=== PATIENT | female | born 1985 | race Caucasian/White ===

== ENCOUNTER 2019-04-14 06:15 | Inpatient (IN) | payer OTHER ==
[~2019-04-14 06:15] MED LIST: ELECTROLYTE-148 SOLN 500 ML IV ONE
[2019-04-14] MEDS ORDERED: ELECTROLYTE-148 SOLN 1,000 ML IV SCH ×2 (06:45→07:45)
[2019-04-14 07:39] VITALS: BMI 27.6
[2019-04-14] MEDS ORDERED: ELECTROLYTE-148 SOLN 500 ML IV ONE (07:45)
[2019-04-14] MEDS ORDERED: CITRIC ACID/SODIUM CITRATE 30 ML UNIT-DOSE CUP PO ONE ×2 (07:45→08:00)
--- NOTE | 2019-04-14 08:03 | HP ---
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: Alzheimer's, CVA, Dementia, Migraine, Multiple Sclerosis, Peripheral Neuropathy, Parkinson's, Seizure, Syncope, TIA, Vertigo, Other Cardiovascular: No: AFIB, Aneurysm, Aortic Insufficiency, Aortic Stenosis, CAD, CHF, Deep Vein Thrombosis, HTN, Hyperlipdemia, LA, Mitral Insufficiency, Mitral Stenosis, Murmur, Pulmonary Hypertension, Other Pulmonary: No: Asthma, Bronchitis, Cancer, COPD, O2 Dependent, Pneumonia, Previously Intubated, Pulmonary Embolus, Pulmonary Fibrosis, Sleep Apnea, Other Gastrointestinal: No: Ascites, Cancer, Constipation, Crohn's Disease, Diverticulitis, Diverticulosis, Esophageal Varices, Gastritis, GERD, GI Bleed, Hemorrhoids, Hiatal Hernia, Inflamatory Bowel Disease, Irritable Bowel Disease, Pancreatitis, Peptic Ulcer Disease, Ulcerative Colitis, Other Hepatobiliary: No: Cirrhosis, Cholelithiasis, Cholecystitis, Choledocholithiasis , Hepatitis A, Hepatitis B, Hepatitis C, Other Renal/: No: Renal Failure, Renal Inusuff, BPH, Cancer, Hematuria, Hemodialysis , Neurogenic Bladder, Renal Calculi, UTI, Other Reproductive: No: Ectopic , Endometriosis, Fibroids, PID, Polycystic Ovary Syndrome, Postmenopausal, Other ...: 4 ...Para: 2 ...Term: 2 ...: 0 ...Spon : 0 ...Induced : 1 ...Multiple Gestation: 0 ...LMP: 07/28/18 ... Weeks Gestation by Dates: 38.1 ...EDC by Dates: 05/04/19 Heme/Onc: No: Anemia, B12 Deficiency, Bleeding Disorder, Cancer, Current Chemotherapy, Current Radiation Therapy, Hemochromatosis, Hypercoaguable State, Myeloproliferative Synd, Sickle Cell Disease, Sickle Cell Trait, Thrombocytopenia, Other Infectious Disease: No: AIDS, C-Diff, Herpes Zoster, HIV, MRSA, STD's, Tuberculosis, VREF, Other Psych: No: Addictions, Anxiety, Bipolar, Depression, Panic, Psychosis, Schizophrenia, Other Musculoskeletal: No: Bursitis, Chronic low back pain, Hemiparesis, Hemiplegia, Osteoarthritis, Paraplegia, Other Rheumatology: No: Fibromyalgia, Gout, Lupus, Rheumatoid Arthritis, Sarcoidosis, Vasculitis, Other ENT: No: Allergic Rhinitis, Sinusitis, Other Dermatology: No: Basal Cell, Cellulitis, Eczema, Melanoma, Psoriasis, Squamous Cell, Other - Past Surgical History Past Surgical History: Yes: (x 2) Hx Myomectomy: No Hx Transabdominal Cerclage: No - Smoking History Smoking history: Never smoked Have you smoked in the past 12 months: No Aproximately how many cigarettes per day: 0 - Alcohol/Substance Use Hx Alcohol Use: No History of Substance Use: reports: None Home Medications - Allergies Allergies/Adverse Reactions: Allergies Allergy/AdvReac Type Severity Reaction Status Date / Time No Known Allergies Allergy Verified 03/07/19 17:44 - Home Medications Home Medications: Ambulatory Orders Labetalol HCl 200 mg PO BID 11/08/12 Pnv No.95/Ferrous Fum/Folic AC [ Tablet] 1 each PO DAILY 11/08/12 Aspirin [ASA -] 81 mg PO DAILY 03/07/19 Nifedipine ER [Procardia Xl -] 30 mg PO DAILY 03/07/19 Family Medical History Family History: Unable to Obtain Review of Systems - Review of Systems Constitutional: denies: No Symptoms, Chills, Diaphoresis, Fever, Lethargy, Loss of Appetite, Malaise, Night Sweats, Unintentional Wgt. Loss, Weakness, Other Eyes: denies: No Symptoms, Blind Spots, Blurred Vision, Double Vision, Eye Pain , Floaters, Photophobia, Recent Change in Vision, Other HENT: denies: No Symptoms, Difficult Swallowing, Ear Discharge, Ear Pain, Epistaxis, Gingival Bleeding, Hearing Loss, Mouth Swelling, Nasal Congestion, Ocular Prosthesis, Throat Pain, Toothache, Ringing in Ears, Other Neck: denies: No Symptoms, Decreased ROM, Lumps, Pain on Movement, Stiffness, Swollen Glands, Tenderness, Other Cardiovascular: denies: No Symptoms, Chest Pain, Edema, Palpitations, Shortness of Breath, Other Respiratory: denies: No Symptoms, Cough, Exercise Intolerance, Hemoptysis, Orthopnea, PND, Snoring, SOB, SOB on Exertion, Wheezing, Other Gastrointestinal: denies: No Symptoms, Abdominal Pain, Bloating, Constipation, Diarrhea, Dysphagia, Indigestion, Melena, Nausea, Rectal Bleeding, Vomiting, Vomiting Blood, Other Genitourinary: denies: No Symptoms, Burning, Discharge, Dysuria, Flank Pain, Frequency, Hematuria, Incontinence, Lesions, Menses, Pain, Testicular Mass, Testicular Pain, Testicular Swelling, Urgency, Vaginal Bleeding, Other Breasts: denies: No Symptoms Reported, See HPI, Breast Implants, Discharge from Nipple, Lumps, Pain, Skin Changes, Other Musculoskeletal: denies: No Symptoms, Back Pain, Crepitus, Decreased ROM, Extremity Pain, Joint Pain, Joint Swelling, Muscle Pain, Muscle Cramps, Muscle Weakness, Other Integumentary: denies: No Symptoms, Blister, Bruising, Change in Color, Eczema, Erythema, Incision, Lesions, Lump, Pallor, Pruritis, Rash, Wound, Other Neurological: denies: No Symptoms, Change in LOC, Change in Speech, Confusion, Dizziness, Headache, Incoordination, Numbness, Parasthesia, Pre-Existing Deficit , Seizure, Syncope, Tremors, Unsteady Gait, Weakness, Other Endocrine: denies: No Symptoms, Excessive Sweating, Flushing, Increased Hunger, Increased Thirst, Intolerance to Cold, Intolerance to Heat, Unexplained Weight Gain, Unexplained Weight Loss, Other Hematology/Lymphatic: denies: No Symptoms, Easily Bruised, Excessive Bleeding, Swollen Glands, Other Psychiatric: denies: No Symptoms, Altered Sleep Pattern, Anxiety, Depression, Hallucinations, Panic, Paranoia, Suicidal, Other Physical Exam - Maternity Vital Signs: Vital Signs Temperature 98.5 F 04/14/19 06:15 Pulse Rate 88 04/14/19 06:15 Respiratory Rate 20 04/14/19 06:15 Blood Pressure 121/86 04/14/19 06:15 O2 Sat by Pulse Oximetry (%) Constitutional: Yes: No Distress HENT: Yes: Atraumatic Cardiovascular: Yes: Regular Rate and Rhythm Breast(s): Yes: Other (deferred) - Abdominal Exam/OB Number of Fetuses: Single Presentation: Vertex Contractions: No Regularity: Irritability Monitor Mode: External Heart Rate (range): 130 Category: I Accelerations: None Decelerations: None - Vaginal Exam/OB Vaginal Bleediing: No Speculum Exam: No - Physical Exam Musculoskeletal: Yes: WNL Extremities: Yes: WNL Edema: Yes Edema: LLE: Trace, RLE: Trace Integumentary: Yes: WNL ...Motor Strength: WNL Psychiatric: Yes: Alert, Oriented - Labs Lab Results: reviewed Imaging - Results Ultrasound: Report Reviewed Assessment/Plan 34 y/o P2 @ 37.1wks, CHTN on multiple antihypertensive and BP difficult to control, GDM and FS well controlled, FHT is reassuring, previous CD x 2 and scheduled repeat. BTL unable to be performed due to consent not previously signed. Patient counseled regarding risks and complications of surgery including delivery at early term. -Proceed with surgery
[2019-04-14] MEDS ORDERED: morphine SULFATE/PF 0.5 MG/ML (2cc Syringe - QUVA) ONE (08:36)
[2019-04-14] MEDS ORDERED: ePHEDrine SULFATE 50 MG/1 ML AMPULE ONE (08:53)
[2019-04-14] MEDS ORDERED: ONDANSETRON 4 MG/2 ML VIAL IVPUSH PRN (09:15)
--- NOTE | 2019-04-14 09:51 | OP ---
Operative Note - Note: Operative Date: 04/14/19 (Dic# [id number]) Pre-Operative Diagnosis: 37.1wks, CHTN poorly controlled on multiple antihypertensive, A1GDM, prior CD x 2 Operation: RCD Findings: see dictation Post-Operative Diagnosis: Same as Pre-op Surgeon: Derrick Jacobs Hoisting Engineer: Chaka Pitts Anesthesia: Spinal Specimens Removed: placenta Estimated Blood Loss (mls): 800 Fluid Volume Replaced (mls): 1,400 Operative Report Dictated: Yes
[2019-04-14] MEDS ORDERED: OXYTOCIN 20 UNITS in 0.9% NS 20 UNIT/1,000 ML INFUS.BAG IV ONE (10:21)
[2019-04-14] MEDS: OXYTOCIN 20 UNITS in 0.9% NS 20 UNIT/1,000 ML INFUS.BAG IV SCH ×2 (10:24→18:00)
[2019-04-14] MEDS ORDERED: IBUPROFEN 800 MG/8 ML IJ IVPB ONE (10:50)
[2019-04-14] MEDS: IBUPROFEN 800 MG/8 ML IJ IVPB PRN ×2 (10:55→22:10)
--- NOTE | 2019-04-14 16:32 | OP ---
DATE OF OPERATION: 04/14/2019 PREOPERATIVE DIAGNOSIS: This is a 34-year-old para 2 at 37 and 1 weeks of gestation, chronic hypertensive with difficulty controlling on multiple antihypertensives, gestational diabetic, prior section x2. POSTOPERATIVE DIAGNOSIS: This is a 34-year-old para 2 at 37 and 1 weeks of gestation, chronic hypertensive with difficulty controlling on multiple antihypertensives, gestational diabetic, prior section x2. PROCEDURE: Repeat low transverse section. SURGEON: Griffin Gunter MD LEAD GENERATION REPRESENTATIVE: CRIS Melo COMPLICATIONS: None. ESTIMATED BLOOD LOSS: For the procedure is 800 mL. INTRAVENOUS FLUIDS: 1400 mL of fluids. URINE: Clear. FINDINGS: Lower abdomen scar consistent with prior section. Moderate amount of subcutaneous adipose tissue. Fascia was thick and adherent to the underlying rectus muscles, and rectus muscles were fused to each other in the midline. No parietal peritoneal visceral adhesions. Bladder was adherent to the lower uterine segment. Bladder dome, rectus muscle fascial interface at the conclusion of the procedure was noted to be dry. DESCRIPTION OF PROCEDURE: The patient was taken to the operating room where anesthesia was found to be adequate. She was then prepped and draped in a normal sterile fashion and then a Palma catheter was placed atraumatically. Appropriate time-out took place. Pfannenstiel skin incision was made with a scalpel and carried to underlying fascia with the Bovie. The fascia was incised in the midline and the incision extended laterally with sharp dissection. The underlying rectus muscles were dissected off sharply. Rectus muscles were elevated in the midline and sharp dissection superiorly. Incidental entry to the peritoneal cavity revealed no visceral adhesions at the point of entry. The incision was extended superiorly and inferiorly without difficulty. Bladder blade was placed in the lower uterine segment as noted above slightly effaced. Transverse lower uterine segment incision with the scalpel was made 5 cm above the vesicouterine junction and incision extended laterally with blunt dissection. Clear amniotomy. The infant was delivered through the surgical incision with mild fundal pressure. No nuchal cord. Cord was clamped and cut. Samples for gases and blood were obtained after delay. The infant was handed off to the waiting NICU staff. The placenta was delivered manually and intact. The uterus was exteriorized through the surgical incision, and the intrauterine cavity was cleared of all clots and debris. The lower uterine segment incision was reapproximated with 1-0 Polysorb in running, locked fashion. Excellent reapproximation. Three [id number] stitches with 2-0 chromic were required to neutralize mild oozing from the incision. Excellent hemostasis after this. The uterus was internalized to the pelvic cavity, and gutters were cleared of all clot and debris. Fundus and bilateral tubes and ovaries consistent with normal anatomy. Lower uterine segment incision again hemostatically stable. The fascial incision was reapproximated with 0 Polysorb running, nonlocked suture. Excellent structural reapproximation achieved and confirmed by digital palpation by the surgeon. Subcutaneous tissues were copiously irrigated and bleeders neutralized with Bovie cautery. The skin incision was reapproximated with surgical mora. Excellent hemostasis at the conclusion of the procedure and patient in stable condition. Instrument count was reported as correct x2 by the staff. GRIFFIN GUNTER MD [id number] MTDD
[2019-04-15] MEDS: SIMETHICONE 80 MG TAB.CHEW (FP) PO PRN ×3 (06:09→16:37)
[2019-04-15] MEDS: IBUPROFEN 600 MG TABLET (FP) PO PRN ×3 (06:09→16:37)
[2019-04-15] MEDS: oxyCODONE HCL 5 MG TABLET PO PRN ×3 (06:12→16:36)
[2019-04-15] MEDS ORDERED: NIFEdipine E.R. 30 MG TABLET PO SCH (07:00)
--- NOTE | 2019-04-15 08:01 | PN ---
Post Progress Note - Subjective Subjective: ambulating, breast feeding, lochia decreased, tolerating PO, voiding Post Day: 1 Type of Delivery: Repeat C/S Vital Signs: Vital Signs Temperature 98.2 F 04/15/19 06:00 Pulse Rate 83 04/15/19 06:00 Respiratory Rate 18 04/15/19 06:00 Blood Pressure 118/68 04/15/19 06:00 O2 Sat by Pulse Oximetry (%) 100 04/14/19 10:45 Breast Exam: Yes: Other (deferred) Uterus: Yes: Fundus Firm Incision: Yes: Dressing dry and intact, Refugio intact Abdomen/GI: Yes: Abdomen soft Lochia, amount: Moderate Extremities: Yes: Calves non-tender Activity: Ambulating Assessment/Plan POD # 1 in stable condition, dressing removed and PP/post-op precautions discussed. PAtient desires circumcision. -COntinue PP care -F/U AM CBC
--- NOTE | 2019-04-15 08:09 | PN ---
Progress Note (short form) - Note Progress Note: 34F s/p repeat C/S under duramorph spinal. Vital Signs Temp 98.2 F 04/15/19 06:00 Pulse 83 04/15/19 06:00 Resp 18 04/15/19 06:00 BP 118/68 04/15/19 06:00 Pulse Ox 100 04/14/19 10:45 Intake & Output 04/14/19 04/14/19 04/15/19 11:59 23:59 11:59 Intake Total 1900 900 0 Output Total 1450 1250 700 Balance 450 -350 -700 Weight 156 lb Intake: IV 1900 900 NORMAL SALINE+20 UNITS 900 900 OXYTOCIN - 20 unit In 1, 000 ml @ 125 mls/hr IV ASDIR MAYCOL Rx#:[id number] Plasma-Lyte 148 - 1,000 500 ml @ 125 mls/hr IV ASDIR MAYCOL Rx#:[id number] Plasma-Lyte 148 - 500 ml 500 @ 1000 mls/hr IV ONCE ONE Rx#:[id number] Oral 0 0 Output: Urine 1450 1250 700 Palma 1450 1250 300 Void 400 Other: Voiding Method Indwelling Catheter Toilet Height 5 ft 3 in Body Mass Index (BMI) 27.6 Weight 5 lb 15 oz Length 18.5 in - No anesthesia complications
[2019-04-15] MEDS ORDERED: FLU VACCINE QUAD 60 MCG/0.5 ML (MDV 19-20) IM ONE (10:00)
[2019-04-15] MEDS ORDERED: FLU VACC QS2019-20(6MOS UP)/PF 60 MCG/0.5 ML SYRINGE IM ONE (10:00)
[2019-04-15] MEDS ORDERED: DIPHTH,PERTUSS(ACELL),TET 0.5 ML DISP.SYRIN IM ONE (10:00)
[2019-04-15 11:50] LABS: BASO % 0.1 % (0-2.0); EOS % 0.5 % (0-4.5); HEMATOCRIT 35.2 % (32.4-45.2); HEMOGLOBIN 12.2 GM/dL (10.7-15.3); LYMPH % 7.8 % (8-40); MCH 34.5 pg (25.7-33.7); MCHC 34.7 g/dl (32.0-36.0); MEAN CELL VOLUME 99.3 fl (80-96); MEAN PLT VOLUME 8.7 fl (7.5-11.1); MONO % 6.4 % (3.8-10.2); NEUT % 85.2 % (42.8-82.8); PLATELET COUNT 203 K/MM3 (134-434); RBC 3.54 M/mm3 (3.60-5.2); RDW 13.5 % (11.6-15.6); WHITE BLOOD COUNT 10.9 K/mm3 (4.0-10.0)
[2019-04-16] MEDS: IBUPROFEN 600 MG TABLET (FP) PO PRN ×3 (02:06→14:41)
[2019-04-16] MEDS: SIMETHICONE 80 MG TAB.CHEW (FP) PO PRN ×3 (02:06→14:40)
[2019-04-16] MEDS: oxyCODONE HCL 5 MG TABLET PO PRN ×3 (02:07→14:40)
[2019-04-16] MEDS: BISACODYL 10 MG SUPP.RECT RC PRN ×2 (02:50→08:20)
--- NOTE | 2019-04-16 08:02 | PN ---
Post Progress Note - Subjective Subjective: c/o gaseous discomfort pain scale 8/10 pt attempted suppository FL herself, it fell down Post Day: 2 Type of Delivery: Repeat C/S Vital Signs: Vital Signs Temperature 97.8 F 04/15/19 20:44 Pulse Rate 86 04/15/19 20:44 Respiratory Rate 20 04/15/19 20:44 Blood Pressure 136/85 04/15/19 20:44 O2 Sat by Pulse Oximetry (%) 100 04/14/19 10:45 Breast Exam: Yes: Soft, Other (NOT BF ). No: Engorged Uterus: Yes: Fundus Firm, Fundus below umbilicus, Non-tender Incision: Yes: Refugio intact. No: Redness, Oozing, Other Abdomen/GI: Yes: Abdomen soft, Abdominal Distention (mild , bS active ), Passing flatus, Tolerating PO (diet ) Lochia: Yes: Rubra Lochia, amount: Moderate Extremities: Yes: Calves non-tender Perineum: Yes: Intact Activity: Ambulating - Labs Labs: CBC WBC 10.9 K/mm3 (4.0-10.0) H 04/15/19 11:00 RBC 3.54 M/mm3 (3.60-5.2) L 04/15/19 11:00 Hgb 12.2 GM/dL (10.7-15.3) 04/15/19 11:00 Hct 35.2 % (32.4-45.2) 04/15/19 11:00 MCV 99.3 fl (80-96) H 04/15/19 11:00 MCH 34.5 pg (25.7-33.7) H 04/15/19 11:00 MCHC 34.7 g/dl (32.0-36.0) 04/15/19 11:00 RDW 13.5 % (11.6-15.6) 04/15/19 11:00 Plt Count 203 K/MM3 (134-434) 04/15/19 11:00 MPV 8.7 fl (7.5-11.1) 04/15/19 11:00 Absolute Neuts (auto) 9.2 K/mm3 (1.5-8.0) H 04/15/19 11:00 Neutrophils % 85.2 % (42.8-82.8) H D 04/15/19 11:00 Lymphocytes % 7.8 % (8-40) L D 04/15/19 11:00 Monocytes % 6.4 % (3.8-10.2) 04/15/19 11:00 Eosinophils % 0.5 % (0-4.5) 04/15/19 11:00 Basophils % 0.1 % (0-2.0) 04/15/19 11:00 Nucleated RBC % 0 % (0-0) 04/15/19 11:00 Problem List - Problems (1) Status post section routine follow-up Code(s): Z39.2 - ENCOUNTER FOR ROUTINE FOLLOW-UP; Z98.891 - HISTORY OF UTERINE SCAR FROM PREVIOUS SURGERY Assessment/Plan stable plan rectal suppository ambulate po fluids requests discharge tomorrow.
[2019-04-16] MEDS ORDERED: oxyCODONE HCL 5 MG TABLET PO PRN (10:12)
[2019-04-16] MEDS ORDERED: ONDANSETRON *ODT* 4 MG TABLET SL PRN (10:14)
--- NOTE | 2019-04-16 10:29 | PN ---
Progress Note (short form) - Note Progress Note: Patient counseled regarding circumcision and after all questions and concerns were discussed, she declined it at this time.
--- NOTE | 2019-04-16 14:50 | PATH ---
Surgical Pathology Report Patient Name: KENJI FERNANDO [facility]. Rec. 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 TRIVASCULAR CORD. MEMBRANES WITH NO DIAGNOSTIC ABNORMALITIES. Electronically Signed Lana Chapin M.D. Gross Description The specimen is received fresh labeled placenta and is a 266 gram, 14.0 x 13.0 x 2.2 cm. placenta with attached membranes and umbilical cord. The attached membranes are bates, translucent and focal opacities and insert marginally. The umbilical cord measures 8 cm. in length and averages 1.2 cm. in diameter. The cord inserts eccentrically, 3 cm. to the nearest margin. No true knots or strictures are identified. Cut surface of the umbilical cord reveals 3 vessels. The surface is bennett-blue with minimal fibrin deposition and appropriate caliber vessels. The maternal surface is red-brown and intact. Sectioning reveals red-brown, spongy parenchyma. No lesions are identified. Maintenance Instructor sections are submitted in three cassettes as follows: 1- membrane rolls and umbilical cord; 2-3- full thickness sections of placenta. /04/15/2019 saudi/04/15/2019
[2019-04-17] MEDS: IBUPROFEN 600 MG TABLET (FP) PO PRN ×2 (00:13→09:42)
[2019-04-17] MEDS: oxyCODONE HCL 5 MG TABLET PO PRN (00:14)
[2019-04-17] MEDS: SIMETHICONE 80 MG TAB.CHEW (FP) PO PRN ×2 (00:14→09:42)
--- NOTE | 2019-04-17 09:17 | DS ---
Physical Examination Vital Signs: Vital Signs Temperature 97 F L 04/16/19 20:52 Pulse Rate 84 04/16/19 20:52 Respiratory Rate 20 04/16/19 20:52 Blood Pressure 121/82 04/16/19 20:52 O2 Sat by Pulse Oximetry (%) 100 04/14/19 10:45 Constitutional: Yes: Well Nourished, No Distress, Calm Eyes: Yes: WNL, Conjunctiva Clear, EOM Intact HENT: Yes: WNL, Atraumatic, Normocephalic Neck: Yes: WNL, Supple, Trachea Midline Cardiovascular: Yes: WNL, Regular Rate and Rhythm Respiratory: Yes: WNL, Regular, CTA Bilaterally Gastrointestinal: Yes: WNL, Normal Bowel Sounds Musculoskeletal: Yes: WNL Extremities: Yes: WNL Edema: No Integumentary: Yes: WNL Neurological: Yes: WNL, Alert, Oriented ...Motor Strength: WNL Psychiatric: Yes: WNL Labs: CBC, BMP 04/15/19 11:00 Discharge Summary Problems reviewed: Yes Reason For Visit: ADMIT Current Active Problems Status post section routine follow-up (Acute) Procedures: Principal: [facility] Hospital Course: Patient presented for a repeat She had an uncomplicated procedure She met all milestones She was discharged home on POD#3 Condition: Stable - Instructions Diet, Activity, Other Instructions: Please return to regular diet as tolerated. Please follow activity instructions as per provider. Take medications as prescribed and follow up within a week at the health center. Call MD with any questions or concerns. Referrals: Derrick Jacobs MD [Staff Physician] - Disposition: HOME - Home Medications Comprehensive Discharge Medication List: Ambulatory Orders Labetalol HCl 200 mg PO BID 11/08/12 Pnv No.95/Ferrous Fum/Folic AC [ Tablet] 1 each PO DAILY 11/08/12 Aspirin [ASA -] 81 mg PO DAILY 03/07/19 Nifedipine ER [Procardia Xl -] 30 mg PO DAILY 03/07/19 Acetaminophen [Tylenol] 650 mg PO Q6H PRN #30 capsule MDD 5 04/14/19 Ibuprofen 600 mg PO Q6H PRN #30 tablet 04/14/19 Oxycodone HCl 5 mg PO Q6H PRN 3 Days #12 tablet MDD 5 04/14/19
[2019-04-17 09:34] VITALS: BP 132/89; PULSE 76; TEMP 97.9
[2019-04-17 10:51] LABS: BASO % 0.2 % (0-2.0); EOS % 3.4 % (0-4.5); HEMATOCRIT 37.2 % (32.4-45.2); HEMOGLOBIN 12.8 GM/dL (10.7-15.3); LYMPH % 17.6 % (8-40); MCH 34.5 pg (25.7-33.7); MCHC 34.5 g/dl (32.0-36.0); MEAN CELL VOLUME 99.8 fl (80-96); MEAN PLT VOLUME 8.4 fl (7.5-11.1); MONO % 7.4 % (3.8-10.2); NEUT % 71.4 % (42.8-82.8); PLATELET COUNT 263 K/MM3 (134-434); RBC 3.73 M/mm3 (3.60-5.2); RDW 13.1 % (11.6-15.6)
== END 2019-04-17 12:25 | disposition home or self-care (01) | DRG 540 ==
LOC: JLDR 06:15 → J3W 11:17
PROVIDERS: ADMIT Student in an Organized Health Care Education/Training Program; ATTEND Student in an Organized Health Care Education/Training Program
PROC: 10D00Z1 Extraction of Products of Conception, Low, Open Approach (ICD-10-PCS; principal; 2019-04-14)
DX: O10.92 Unspecified pre-existing hypertension complicating childbirth (principal); O24.429 Gestational diabetes mellitus in childbirth, unspecified control; O34.219 Maternal care for unspecified type scar from previous cesarean delivery; Z3A.35 35 weeks gestation of pregnancy; Z37.0 Single live birth
CPT/HCPCS: 36415; 36600; 82803; 85025; 88307-TC; Q0162

== ENCOUNTER 2021-05-29 13:43 | Emergency (ER) | payer OTHER ==
[2021-05-29 13:57] VITALS: BP 154/84; TEMP 98; BMI 26.4
[2021-05-29 14:58] VITALS: PULSE 89
== END 2021-05-29 14:58 | disposition home or self-care (01) ==
LOC: JERFT 13:43 → JER 13:43 → JERFT 14:58
DX: H43.393 Other vitreous opacities, bilateral (principal); F41.9 Anxiety disorder, unspecified
CPT/HCPCS: 82962; 99283-25

== ENCOUNTER 2022-07-02 19:26 | Emergency (ER) | payer OTHER ==
[2022-07-02 19:32] VITALS: BP 157/93; PULSE 92; RESP 18; TEMP 98.1; BMI 25.4
[2022-07-02] MEDS ORDERED: SODIUM CHLORIDE 0.9% 500 ML INFUS.BAG IV ONE (19:43)
[2022-07-02] MEDS ORDERED: ACETAMINOPHEN 1000 MG/100 ML BAG IVPB ONE (19:43)
[2022-07-02] MEDS ORDERED: ACETAMINOPHEN INJECTION 100 ML IVPB ONE (20:16)
[2022-07-02] MEDS ORDERED: METOCLOPRAMIDE HCL INJECTION 10 MG/2 ML VIAL IVPUSH ONE (20:19)
[2022-07-02] MEDS ORDERED: KETOROLAC TROMETHAMINE 30 MG/1 ML VIAL IVPUSH ONE (20:19)
[2022-07-02] MEDS ORDERED: KETOROLAC TROMETHAMINE 30 MG/1 ML VIAL ONE (20:40)
[2022-07-02] MEDS ORDERED: METOCLOPRAMIDE HCL INJECTION 10 MG/2 ML VIAL ONE (20:40)
[2022-07-02 20:44] LABS: BASO % 0.2 % (0-2.0); EOS % 0.9 % (0-4.5); HEMATOCRIT 39.7 % (32.4-45.2); HEMOGLOBIN 13.9 GM/dL (10.7-15.3); LYMPH % 32.8 % (8-40); MCH 32.4 pg (25.7-33.7); MEAN CELL VOLUME 92.7 fl (80-96); MEAN PLT VOLUME 8.2 fl (7.5-11.1); MONO % 7.4 % (3.8-10.2); NEUT % 58.7 % (42.8-82.8); PLATELET COUNT 389 10^3/uL (134-434); RBC 4.29 M/mm3 (3.60-5.2); RDW 13.1 % (11.6-15.6); WHITE BLOOD COUNT 10.9 K/mm3 (4.0-10.0)
[2022-07-02 21:01] LABS: CALCIUM 9.3 mg/dL (8.5-10.1)
[2022-07-02 21:02] LABS: BLOOD UREA NITROGEN 16.2 mg/dL (7-18)
[2022-07-02 21:05] LABS: CREATININE 0.5 mg/dL (0.55-1.3)
== END 2022-07-02 22:57 | disposition home or self-care (01) ==
LOC: JER 19:26
PROC: 3E033NZ Introduction of Analgesics, Hypnotics, Sedatives into Peripheral Vein, Percutaneous Approach (ICD-10-PCS; principal; 2022-07-02)
PROC: 3E033GC Introduction of Other Therapeutic Substance into Peripheral Vein, Percutaneous Approach (ICD-10-PCS; 2022-07-02)
PROC: 3E033GC Introduction of Other Therapeutic Substance into Peripheral Vein, Percutaneous Approach (ICD-10-PCS; 2022-07-02)
DX: G43.109 Migraine with aura, not intractable, without status migrainosus (principal); R11.0 Nausea
CPT/HCPCS: 36415; 80048; 85025; 99284-25

== ENCOUNTER 2023-10-27 13:11 | Emergency (ER) | payer OTHER ==
[2023-10-27 13:17] VITALS: BP 143/82; PULSE 83; RESP 18; TEMP 97.8; BMI 26.5
[2023-10-27 15:02] LABS: BASO % 0.4 % (0-2.0); HEMATOCRIT 44.2 % (32.4-45.2); HEMOGLOBIN 15.2 GM/dL (10.7-15.3); LYMPH % 23.4 % (8-40); MCH 32.8 pg (25.7-33.7); MCHC 34.5 g/dl (32.0-36.0); MEAN CELL VOLUME 95.1 fl (80-96); MEAN PLT VOLUME 8.4 fl (7.5-11.1); MONO % 6.8 % (3.8-10.2); NEUT % 68.4 % (42.8-82.8); PLATELET COUNT 365 10^3/uL (134-434); RBC 4.65 M/mm3 (3.60-5.2); RDW 12.8 % (11.6-15.6); WHITE BLOOD COUNT 8.9 K/mm3 (4.0-10.0)
[2023-10-27] MEDS: SODIUM CHLORIDE 0.9% 500 ML INFUS.BAG IV ONE (15:16)
[2023-10-27 15:21] LABS: POTASSIUM 4.2 mmol/L (3.5-5.1)
[2023-10-27 15:23] LABS: CALCIUM 9.4 mg/dL (8.5-10.1)
[2023-10-27 15:24] LABS: BLOOD UREA NITROGEN 14.4 mg/dL (7-18)
[2023-10-27 15:27] LABS: CREATININE 0.6 mg/dL (0.55-1.3)
[2023-10-27 15:28] LABS: BILIRUBIN,TOTAL 0.5 mg/dL (0.2-1); TOT PROT 7.6 g/dl (6.4-8.2)
[2023-10-27 15:38] LABS: ACTIVATED PTT 29.8 SECONDS (25.2-36.5); INR 1.08 (0.83-1.09); PROTHROMBIN TIME (PATIENT) 12.4 SEC (9.7-13.0)
[2023-10-27 16:18] LABS: HIV INTERPRETATION NEGATIVE (NEGATIVE)
== END 2023-10-27 16:16 | disposition home or self-care (01) ==
LOC: JER 13:11
DX: R42 Dizziness and giddiness (principal); E86.0 Dehydration; Z20.822 Contact with and (suspected) exposure to COVID-19
CPT/HCPCS: 0241U-QW; 36415; 80053; 82550; 84484; 85025; 85610; 85730; 86803; 87389; 93005; 93010; 99284-25